=== PATIENT | male | born 1975 | race Two or more races ===

== ENCOUNTER 2020-07-30 01:06 | Inpatient (IN) | payer MEDICAID, OTHER ==
[~2020-07-30] VITALS: Ht 167.6 cm; Wt 81.6 kg
[2020-07-30] MEDS ORDERED: ACETAMINOPHEN 325MG TABLET PO STA (01:26)
[2020-07-30] MEDS ORDERED: DEXAMETHASONE 10 MG/ML VIAL IV ONE (01:30)
[2020-07-30 01:55] LABS: BASOPHILS % 0.3 % (0.0-2.0); EOSINOPHILS % 0.7 % (0.0-5.0); HEMATOCRIT. 44.3 % (42.0-52.0); HEMOGLOBIN. 14.6 g/dL (14.0-18.0); LYMPHOCYTES % 11.7 % (20.0-50.0); MEAN CORPUSCULAR HEMOGLOBIN 29.8 pg (28.0-32.0); MEAN CORPUSCULAR VOLUME 90.4 fL (80.0-94.0); MEAN PLATELET VOLUME 8.6 fl (7.4-10.4); MONOCYTES % 4.9 % (2.0-8.0); NEUTROPHILS % 82.4 % (40.0-76.0); PLATELET 384 x1000/uL (130-400); RED CELL DISTRIBUTION WIDTH 14.3 % (11.6-14.6)
[2020-07-30 02:11] LABS: CHLORIDE 95 mEq/L (98-107)
[2020-07-30 02:15] LABS: ETHANOL BLOOD < 10 mg/dL
[2020-07-30 02:19] LABS: CREATINE KINASE 110 IU/L (39-308)
[2020-07-30 02:28] LABS: PROTHROMBIN TIME 10.6 sec (9.6-11.0)
[2020-07-30] MEDS ORDERED: SODIUM CHLORIDE 0.9% 1,000 ML IV ONE (03:00)
[2020-07-30 09:30] VITALS: BP 117/74
[2020-07-30] MEDS ORDERED: ACETAMINOPHEN 325MG TABLET PO PRN (09:30)
[2020-07-30] MEDS ORDERED: ALBUTEROL 6.7GM HFA INHALER ORI PRN (09:30)
[2020-07-30] MEDS ORDERED: ONDANSETRON HCL 4MG/2ML INJ IV PRN (09:30)
[2020-07-30] MEDS ORDERED: DEXTROSE 50% WATER 50ML SYRINGE IV PRN (09:30)
[2020-07-30] MEDS ORDERED: AZITHROMYCIN 500 MG TABLET PO NR (09:45)
[2020-07-30] MEDS: ENOXAPARIN 40MG/0.4ML SYR SUBCUT SCH (10:28)
[2020-07-30 11:00] VITALS: BP 120/74
[2020-07-30] MEDS ORDERED: INSULIN GLARGINE UD 100 UNITS/ML SYR SUBCUT NR (11:00)
[2020-07-30] MEDS ORDERED: INSU100C6 SQ (11:12)
[2020-07-30] MEDS: CEFTRIAXONE 1,000 MG in DEXTROSE 5% WATER 50 ML IV SCH (11:17)
[2020-07-30 12:00] VITALS: BP 120/76
[2020-07-30] MEDS: INSULIN LISPRO 100 UNITS/ML SUBCUT SCH ×3 (12:33→20:35)
[2020-07-30] MEDS: BLOOD SUGAR DIAGNOSTIC STRIP TEST SCH ×3 (12:41→20:35)
[2020-07-30 15:52] VITALS: BP 112/61
[2020-07-30] MEDS ORDERED: BENZONATATE 100MG CAPSULE PO PRN (16:45)
[2020-07-30 19:54] VITALS: BP 116/61
[2020-07-30] MEDS: INSULIN GLARGINE UD 100 UNITS/ML SYR SUBCUT SCH (22:34)
[2020-07-31 00:05] VITALS: BP 120/74
[2020-07-31 04:00] VITALS: BP 107/69
[2020-07-31] MEDS: BLOOD SUGAR DIAGNOSTIC STRIP TEST SCH ×4 (05:40→21:00)
[2020-07-31] MEDS: INSULIN LISPRO 100 UNITS/ML SUBCUT SCH ×4 (07:48→22:58)
[2020-07-31 08:00] VITALS: BP 106/62
[2020-07-31] MEDS ORDERED: DEXAMETHASONE 6MG TABLET PO SCH (09:00)
[2020-07-31] MEDS ORDERED: AZITHROMYCIN 250 MG TABLET PO SCH (09:00)
[2020-07-31] MEDS: ENOXAPARIN 40MG/0.4ML SYR SUBCUT SCH (10:13)
[2020-07-31] MEDS: INSULIN GLARGINE UD 100 UNITS/ML SYR SUBCUT SCH (10:14)
[2020-07-31] MEDS: CEFTRIAXONE 1,000 MG in DEXTROSE 5% WATER 50 ML IV SCH (10:23)
[2020-07-31 11:16] LABS: BG BASE EXCESS 1.6 mmol/L (-2.0-2.0); BG CARBOXYHEMOGLOBIN 0.2 % (0.5-1.5); BG DEOXYHEMOGLOBIN 9.2 % (0.0-5.0); BG FRACTION INSPIRED OXYGEN 100; BG HCO3 ACT 24.9 mmol/L (22.0-26.0); BG METHEMOGLOBIN 0.3 % (0.0-1.5); BG OXYGEN SATURATION 90.8 % (92.0-98.5); BG OXYHEMOGLOBIN 90.3 % (94.0-97.0); BG PCO2 35.2 mmHg (35.0-45.0); BG PH 7.467 (7.350-7.450); BG PO2 59.4 mmHg (75.0-100.0); BG SAMPLE SITE LEFT RADIAL; BG TOTAL HEMOGLOBIN 14.2 g/dL (12.0-18.0); BG VENT MODE MASK - NRB
[2020-07-31 12:00] VITALS: BP 114/63
[2020-07-31 16:00] VITALS: BP 102/71
[2020-07-31] MEDS ORDERED: ZOLPIDEM TARTRATE 5MG TABLET PO PRN (19:30)
[2020-07-31 20:43] VITALS: BP 113/71
[2020-07-31] MEDS ORDERED: INSULIN GLARGINE UD 100 UNITS/ML SYR SUBCUT SCH (22:00)
[2020-08-01 00:15] VITALS: BP 119/72
[2020-08-01 02:56] LABS: *AMPHETAMINES SCREEN URINE NEGATIVE (NEGATIVE)
[2020-08-01 02:57] LABS: *BARBITURATES SCREEN URINE NEGATIVE (NEGATIVE); *BENZODIAZEPINES SCREEN URINE NEGATIVE (NEGATIVE); *COCAINE SCREEN URINE NEGATIVE (NEGATIVE); CANNABINOID URINE SCREEN PRESUMTIVE POSITIVE (NEGATIVE); METHADONE URINE SCREEN NEGATIVE (NEGATIVE); OPIATES URINE SCREEN NEGATIVE (NEGATIVE); PHENCYCLIDINE URINE SCREEN NEGATIVE (NEGATIVE)
[2020-08-01 04:00] VITALS: BP 111/71
== END 2020-08-01 06:47 | disposition left against medical advice (07) | DRG 720 ==
LOC: ER 01:06 → 7WST 04:05 → EDBEDREQSVC 04:09 → EDBEDREQTM 04:09 → EDBEDREQ 04:09 → ENRESERV 08:24
PROVIDERS: ADMIT Internal Medicine; ATTEND Internal Medicine
DX: A41.89 Other specified sepsis (principal); U07.1 COVID-19; E43 Unspecified severe protein-calorie malnutrition; E87.1 Hypo-osmolality and hyponatremia; E87.2 Acidosis; E87.8 Other disorders of electrolyte and fluid balance, not elsewhere classified; J12.82 Pneumonia due to coronavirus disease 2019; R65.20 Severe sepsis without septic shock; J96.00 Acute respiratory failure, unspecified whether with hypoxia or hypercapnia; R74.01 Elevation of levels of liver transaminase levels; D72.810 Lymphocytopenia; T38.0X5A Adverse effect of glucocorticoids and synthetic analogues, initial encounter; Z79.4 Long term (current) use of insulin; Z79.899 Other long term (current) drug therapy; Z68.29 Body mass index [BMI] 29.0-29.9, adult; Y92.89 Other specified places as the place of occurrence of the external cause; E11.65 Type 2 diabetes mellitus with hyperglycemia
CPT/HCPCS: 36415; 36600; 71045; 80053; 80305; 80320; 82375; 82550; 82805; 82962; 83036; 83605; 83615; 84145; 84484; 85025; 93005; 99291; J0696; J1100; J1650; J1815; J7060; U0003; G0480